=== PATIENT | female | born 1975 | race Caucasian/White ===

== ENCOUNTER 2016-06-12 11:04 | Emergency (ER) | payer OTHER ==
[2016-06-12 11:30] VITALS: PULSE 88; RESP 18; TEMP 97.7
[2016-06-12] MEDS ORDERED: LORazepam 2 MG/ML INJ IVP ONE (11:35)
[2016-06-12] MEDS ORDERED: LORazepam 1 MG TAB PO ONE (11:39)
--- NOTE | 2016-06-12 11:47 | UCPHY ---
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 also fell last sunday, missed step and has right knee pain. Time Seen by Provider: 06/12/16 11:38 HPI/ROS: CHIEF COMPLAINT: Anxiety, knee pain HISTORY OF PRESENT ILLNESS: The patient is a 41-year-old female with a history of anxiety and hypertension comes to the Urgent Care complaining right knee pain and bruising as well as anxiety attack. She states that 4 days ago she fell while walking down the stairs and landed on the landing on a bent knee. She has been able to ambulate since. She has full extension and range of motion in her leg. She has significant bruising around patella that appears to be several days old. She has pain with extension has normal strength and mobility. She also states that over the last 3 hours she has had increased anxiety. She has a baseline level of anxiety and takes Klonopin 1-2 tablets daily but ran out 5 days ago. She has not had any seizure-like activity. She is mildly tremulous and hypertensive. REVIEW OF SYSTEMS: Constitutional: denies: chills, fever, recent illness, recent injury EENTM: denies: blurred vision, double vision, nose congestion Respiratory: denies: cough, shortness of breath Cardiac: denies: chest pain, irregular heart rate, lightheadedness, palpitations Gastrointestinal/Abdominal: denies: abdominal pain, diarrhea, nausea, vomiting, blood streaked stools Genitourinary: denies: dysuria, frequency, hematuria, pain Musculoskeletal: See HPI Skin: denies: lesions, rash, jaundice, bruising Neurological: denies: headache, numbness, paresthesia, tingling, dizziness, weakness Hematologic/Lymphatic: denies: blood clots, easy bleeding, easy bruising Immunologic/allergic: denies: HIV/AIDS, transplant EXAM: GENERAL: Mild tremors , well-nourished and in no acute distress. HEAD: Atraumatic, normocephalic. EYES: Pupils equal round and reactive to light, extraocular movements intact, sclera anicteric, conjunctiva are normal. ENT: TMs normal, nares patent, oropharynx clear without exudates. Moist mucous membranes. NECK: Normal range of motion, supple without lymphadenopathy or JVD. LUNGS: Breath sounds clear to auscultation bilaterally and equal. No wheezes rales or rhonchi. HEART: Regular rate and rhythm without murmurs, rubs or gallops. ABDOMEN: Soft, nontender, normoactive bowel sounds. No guarding, no rebound. No masses appreciated. BACK: No CVA tenderness, no spinal tenderness, step-offs or deformities EXTREMITIES: Normal range of motion, see HPI, bruising. No crepitus of patella , no laxity of joint NEUROLOGICAL: Cranial nerves II through XII grossly intact. Normal speech, normal gait. 5/5 strength, normal movement in all extremities, normal sensation PSYCH: Anxious, mildly tremulous SKIN: Warm, dry, normal turgor, no visible rashes or lesions. Source: Patient Exam Limitations: No limitations - Personal History LMP (Females 10-55): 8-14 Days Ago Current Tetanus/Diphtheria Vaccine: Yes Current Tetanus Diphtheria and Acellular Pertussis (TDAP): Yes - Medical/Surgical History Hx Asthma: No Hx Chronic Respiratory Disease: No Hx Diabetes: No Hx Cardiac Disease: No Hx Renal Disease: No Hx Cirrhosis: No Hx Alcoholism: No Hx HIV/AIDS: No Hx Splenectomy or Spleen Trauma: No Other PMH: HTN diagnosed 2 months ago. Anxiety, depression, C section, tubaligation. cervical disc herniation. - Family History Significant Family History: No pertinent family hx - Social History Smoking Status: Former smoker Alcohol Use: Sober Drug Use: None Constitutional: Initial Vital Signs Temperature (C) 36.5 C 06/12/16 11:23 Heart Rate 88 06/12/16 11:23 Respiratory Rate 18 06/12/16 11:23 Blood Pressure 166/120 H 06/12/16 11:23 O2 Sat (%) 95 06/12/16 11:23 O2 Delivery Mode Room Air Allergies/Adverse Reactions: Penicillins Allergy (Intermediate, Verified 06/12/16 11:22) Hives Home Medications: Medication Instructions Recorded Venlafaxine Xr [Effexor Xr] 75 mg PO 05/18/11 traZODONE 06/06/13 clonazePAM [CLONAZEPAM] 07/22/14 Lisinopril 06/04/15 clonAZEPAM [Klonopin] 1 mg PO BID PRN #5 tab.rapdis 06/12/16 Medical Decision Making - Diagnostics Imaging: X-ray: Knee x-ray was obtained. I viewed the images myself on the PACS system. My interpretation of the images is: Negative. The radiologist interpretation is pending. ED Course/Re-evaluation: 12:45 p.m. the patient is feeling much better. She still has some anxiety. She is asking for a refill of her Klonopin and for the next 2 days until she can see her doctor. They will discuss at that point if she needs a larger prescription or if she needs to take few of them. Her knee was wrapped with an Param bandage. We encouraged elevation and ice. We discussed indications for returning. Differential Diagnosis: Partial list of the Differential diagnosis considered include but were not limited to; anxiety attack, traumatic bursitis, traumatic effusion, patella fracture and although unlikely based on the history and physical exam, I also considered ligamentous injury, meniscus injury, sepsis. I discussed these differential diagnoses and the plan with the patient as well as the usual and expected course. The patient understands that the diagnosis is provisional and that in medicine we are not always correct and that further workup is often warranted. Usual and customary warnings were given. All of the patient's questions were answered. The patient was instructed to return to the emergency department should the symptoms at all worsen or return, otherwise to followup with the physician as we discussed. - Data Points Medications Given: Discontinued Medications Lorazepam (Ativan Injection) 2 mg IVP EDNOW ONE Stop: 06/12/16 11:36 Last Admin: 06/12/16 11:39 Dose: Not Given Lorazepam (Ativan) 2 mg PO EDNOW ONE Stop: 06/12/16 11:40 Last Admin: 06/12/16 11:41 Dose: 2 mg Departure - Departure Disposition: Home, Routine, Self-Care Clinical Impression: Traumatic joint effusion, Anxiety attack Hypertension Qualifiers: Hypertension type: essential hypertension Qualified Code(s): I10 - Essential ( primary) hypertension Condition: Fair Instructions: Swollen Knee Joint (ED), Anxiolysis in Adults (ED) Referrals: SHIRA TSE MD [Other] - As per Instructions Prescriptions: clonAZEPAM [Klonopin] 1 mg PO BID PRN #5 tab.rapdis PRN Reason: Anxiety - PQRS PQRS Measurement: Not applicable
[2016-06-12 12:43] VITALS: BP 159/89; O2SAT 96
== END 2016-06-12 12:55 | disposition home or self-care (01) ==
LOC: CED 11:04
DX: F41.9 Anxiety disorder, unspecified (principal); M25.461 Effusion, right knee; I10 Essential (primary) hypertension; Z87.891 Personal history of nicotine dependence
CPT/HCPCS: 73564-PO; 99214-PO; G0463-PO; J2060